=== PATIENT | female | born 1995 | race Caucasian/White ===

== ENCOUNTER 2018-04-26 19:22 | Emergency (ER) | payer OTHER ==
[2018-04-26] MEDS: LIDOCAINE/MYLANTA 40 ML BTL PO (21:06)
[2018-04-26] MEDS: RANITIDINE 150 MG TAB PO (21:06)
[2018-04-26 21:10] LABS: URINE BLOOD (Dip) POC 2+ (NEGATIVE); URINE GLUCOSE (Dip) POC Negative (NEGATIVE); URINE KETONES (Dip) POC Negative (NEGATIVE); URINE LEUKOCYTE EST (Dip) POC Negative (NEGATIVE); URINE NITRITE (Dip) POC Negative (NEGATIVE); URINE TOTAL PROTEIN POC Negative (NEGATIVE)
== END 2018-04-26 22:14 | disposition home or self-care (01) ==
LOC: FTE 19:22
DX: R10.13 Epigastric pain (principal); R10.2 Pelvic and perineal pain
CPT/HCPCS: 81003; 81025; 99282

== ENCOUNTER 2018-07-21 01:16 | Emergency (ER) | payer OTHER | END 2018-07-21 02:45 | disposition home or self-care (01) | LOC: FTE 01:16 | DX: R05 Cough (principal); R09.81 Nasal congestion | CPT/HCPCS: 99283 ==